=== PATIENT | female | born 1970 | race Caucasian/White ===

== ENCOUNTER 2017-09-14 10:57 | Outpatient (CLI) | payer MEDICARE, MEDICAID | END 2017-09-14 10:58 | disposition home or self-care (01) | LOC: BICULT 10:57 | PROVIDERS: ATTEND Internal Medicine Rheumatology | DX: R10.11 Right upper quadrant pain (principal) | CPT/HCPCS: 76705 ==

== ENCOUNTER 2017-10-03 15:14 | Outpatient (CLI) | payer MEDICARE, MEDICAID | END 2017-10-03 15:15 | disposition home or self-care (01) | LOC: BICRAD 15:14 | PROVIDERS: ATTEND Internal Medicine Rheumatology | DX: M79.672 Pain in left foot (principal); M19.072 Primary osteoarthritis, left ankle and foot ==

== ENCOUNTER 2017-11-13 11:34 | Outpatient (CLI) | payer MEDICARE, MEDICAID ==
--- NOTE | 2017-11-13 15:03 | MRI ---
LEFT FOREFOOT MRI WITHOUT IV CONTRAST: HISTORY: A 47-year-old female with a history of left foot pain. FINDINGS: A marker is placed over the plantar surface of the foot at the 2nd and 3rd toe interface. There is a small focus of T2 hypointense and intermediate T2 signal between the 2nd and 3rd metatarso phalangeal joints, which could represent a small neuroma. There are degenerative changes of the foot including the 1st metatarsophalangeal joint with some prominent interosseous cystic changes along th e medial aspect of the 1st metatarsal and extending into the 1st metatarsal shaft, evidence for some interosseous degenerative or interosseous ganglion cystic change. Arthrosis changes of the 1st metat arsophalangeal joint and associated sesamoid bones are demonstrated. Intrinsic muscles of the foot d emonstrate normal signal. No significant abnormality noted involving the visualized flexor, extensor , and peroneus tendons. IMPRESSION: Subtle T1 and T2 areas of altered signal between the 2nd and 3rd metatarsophalangeal joint regions mo re so on the plantar aspect concerning for the possibility of a small neuroma. Arthrosis changes, pa rticularly of the 1st metatarsophalangeal joint with some interosseous cystic changes in the 1st meta tarsal. No evidence for other significant acute process. POS: [facility]
--- NOTE | 2017-11-13 15:15 | ULT ---
PELVIC ULTRASOUND: History Pelvic pain. COMPARISON: None. TECHNIQUE: Transabdominal and endovaginal imaging of the pelvis is performed. Ovaries are interrogated with gra y scale, color flow, Doppler imaging, and spectral waveform analysis. FINDINGS: Uterus is identified, measuring 8.3 x 4.5 x 7.1 cm. There is a solid echotexture mass in the myometr ium, near the fundus measuring 3.2 x 3.1 x 3.3 cm. A uterine leiomyoma is suspected. Suboptimal sergio luation of the endometrium. Multiple nabothian cysts are suspected. Limited evaluation of the ovaries. Grossly, the right ovary has a normal echotexture measuring 2.7 x 1.9 x 1.9 cm. The left ovary has a normal echotexture. The left ovary measures 1.1 x 2.1 x 1.6 cm. A small follicle in the left ovary is noted. No free fluid. OVARIAN DOPLER: Vascular flow to both ovaries. IMPRESSION: 1. Probable uterine leiomyoma. 2. Suboptimal evaluation of the endometrium. POS: [facility]
== END 2017-11-13 11:35 | disposition home or self-care (01) ==
LOC: MRI 11:34
PROVIDERS: ATTEND Internal Medicine Rheumatology
DX: M79.672 Pain in left foot (principal); R10.2 Pelvic and perineal pain; M19.072 Primary osteoarthritis, left ankle and foot
CPT/HCPCS: 76856

== ENCOUNTER 2017-11-23 16:20 | Outpatient (CLI) | payer MEDICARE, MEDICAID | END 2017-11-23 16:21 | disposition home or self-care (01) | LOC: BICRAD 16:20 | PROVIDERS: ATTEND Internal Medicine Rheumatology | DX: M54.5 Low back pain (principal); M25.561 Pain in right knee; M47.896 Other spondylosis, lumbar region; M17.11 Unilateral primary osteoarthritis, right knee | CPT/HCPCS: 72100 ==

== ENCOUNTER 2018-01-09 15:34 | Outpatient (CLI) | payer MEDICARE | END 2018-01-09 15:35 | disposition home or self-care (01) | LOC: BICMAMMO 15:34 | PROVIDERS: ATTEND Obstetrics & Gynecology | DX: Z12.31 Encounter for screening mammogram for malignant neoplasm of breast (principal) | CPT/HCPCS: 77063; 77067 ==

== ENCOUNTER 2019-02-18 09:36 | Outpatient (CLI) | payer MEDICARE ==
--- NOTE | 2019-02-18 11:45 | MRI ---
MRI OF THE LEFT FOREFOOT WITHOUT IV CONTRAST: INDICATION: Concern for Brown's neuroma. COMPARISON: Prior MR the left forefoot dated 11/13/2017. FINDINGS: Surface marker was placed just subjacent to the second metatarsal proximal phalanx. There is a lobula selene mass present within the second and third intermetatarsal space, between the metatarsal heads measuring 2.2 x 1.4 cm suspicious for a neuroma. This is much more evident than seen on the compariso n MR examination. There has been interval development of moderate to prominent intermetatarsal bursitis. No additional neuroma is evident. There is mild edematous change involving the tibial great toe sesamoid, likely degenerative. 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 There is mild metatarsus primus varus hallux valgus formation of first ray. There are periarticular erosions seen a long the dorsal medial aspect of the great toe metatarsal head. The visualized Lisfranc ligament is intact. There is scattered IP osteoarthrosis. The visualized flexor and extensor tendons are normal a ppearing. 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 The neuroma has increased in size from the comparison examination dated 11/13/2017. The intermetatarsal bursitis is new. Periarticular erosions involving the dorsal medial aspect of the great toe metatarsal head may reflec t sequela of gout. Recommend correlation with radiographs of the left foot. Transcribed Date/Time: 02/18/2019 12:04 PM
--- NOTE | 2019-02-18 11:48 | MRI ---
MRI RIGHT FOREFOOT WITHOUT CONTRAST: INDICATION: Concern for Brown's neuroma. COMPARISON: None. FINDINGS: There is mild metatarsus prima varus and hallux valgus deformity of the first ray. There are periarti cular erosions involving the medial aspect of the great toe distal phalanx which can be seen with entities such as gout. A surface marker was placed over region of interest underlying the third digit proximal phalangeal shaft. A bulbous region of intermediate T1 and heterogeneous to intermediate T2 signal abnormality is seen within the second and third digit metatarsal space, measuring approxima tely 5.6 x 4.6 mm, suspicious for an intermetatarsal Brown's neuroma. There is scattered forefoot osteoarthrosis. The visualized flexor tendons and extensor tendons are intact. The intrinsic foot mus culature appears within normal limits. No acute fracture is demonstrated. IMPRESSION: 1. Bulbous region of low T1 signal intensity seen within the second and third intermetatarsal space, suspicious for the presence of a Brown's neuroma. 2. Periarticular erosive change with moderate great toe metatarsophalangeal osteoarthrosis. A compone nt of crystalline arthropathy such as gout cannot be entirely excluded. Recommend correlation with the patient's right foot radiographs. Transcribed Date/Time: 02/18/2019 12:06 PM
== END 2019-02-18 09:37 | disposition home or self-care (01) ==
LOC: TBSIIMAG 09:36
PROVIDERS: ATTEND Specialist
DX: G57.63 Lesion of plantar nerve, bilateral lower limbs (principal); S92.902A Unspecified fracture of left foot, initial encounter for closed fracture; M19.071 Primary osteoarthritis, right ankle and foot; M77.52 Other enthesopathy of left foot and ankle

== ENCOUNTER 2022-02-22 14:01 | Outpatient (CLI) | payer MEDICARE, MEDICAID | END 2022-02-22 14:02 | disposition home or self-care (01) | LOC: BICMRI 14:01 | PROVIDERS: ATTEND Pain Medicine Pain Medicine | DX: M51.16 Intervertebral disc disorders with radiculopathy, lumbar region (principal); M47.26 Other spondylosis with radiculopathy, lumbar region; M47.27 Other spondylosis with radiculopathy, lumbosacral region | CPT/HCPCS: 72148 ==